=== PATIENT | female | born 1990 | race Caucasian/White ===

== ENCOUNTER 2016-06-17 12:00 | Emergency (ER) | payer BC ==
--- NOTE | 2016-06-17 16:54 | DIAGNOSTIC IMAGING REPORT ---
PROCEDURE: US OB 1ST TRIMESTER W/TRANSVAG INDICATION: Pelvic pain, Beta hCG 17,000. Initial encounter. TECHNIQUE: Cadet scale, color, and spectral Doppler transabdominal and endovaginal sonographic images of the first trimester gravid uterus were obtained. COMPARISON: None. FINDINGS: TRANSABDOMINAL SCANS: Single intrauterine gestational sac. Anteverted uterus. No free fluid. Normal kidneys. Closed cervix measures 4.3 cm. TRANSVAGINAL SCANS: Gestational sac diameter of 13.7 mm, 6 weeks 3 days. Yolk sac present. No evidence of a pole. IMPRESSION: 1. Single intrauterine gestational sac without pole and Beta hCG 17,000. This suggests a blighted ovum. Recommend follow-up Beta hCG and ultrasound. 2. Results discussed with Dr. Parra
--- NOTE | 2016-06-17 17:23 | ED CLINICAL REPORT ---
Clinical Report - Physicians/Mid Levels [facility] [address] [place] [address] 06/17/2016 12:02 Patient: JACOBO MCADAMS Time Seen: 12:29; initial patient contact. Arrived- By private vehicle. Historian- patient. HISTORY OF PRESENT ILLNESS Chief Complaint: PELVIC PAIN and VAGINAL BLEEDING. This started today and still present. It was abrupt in onset and has been intermittent. The symptoms are described as mild. Modifying factors. Not worsened by anything. Not relieved by anything. The patient has had pelvic pain and abnormal bleeding. No abdominal pain, vaginal pain, low back pain, flank pain or vaginal discharge. No pain with urination, urinary frequency, urgency of urination or hematuria. Currently . Receiving care. Similar symptoms previously: None. Recent medical care: The patient was seen recently in the office. ( Most recent U/S not c/w dates). REVIEW OF SYSTEMS No nausea, vomiting, fever, chills or difficulty breathing. All systems otherwise negative, except as recorded above. PAST HISTORY ( Psoriasis. Suicide Attempt. Depression. SURGERIES: Adenoidectomy. Tonsillectomy.). SOCIAL HISTORY Never smoker. No alcohol use or drug use. ADDITIONAL NOTES The nursing notes have been reviewed. PHYSICAL EXAM Vital Signs: 06/17/2016 12:08 BP: 113/68. HR: 80. RR: 16. O2 saturation: 100%. Temp: 98.4 F. Pain level now: 5/10. Have been reviewed as normal. Appearance: Alert. Oriented X3. No acute distress. HEENT: Normal external inspection. CVS: Heart sounds normal. Rate normal. Rhythm normal. Respiratory: No respiratory distress. Breath sounds normal. Abdomen: Soft. Mild tenderness in the suprapubic area. Bowel sounds normal. Back: Normal external inspection. No CVA tenderness. : Speculum exam performed. A scant amount of thick and curd-like vaginal discharge present. No vaginal bleeding. Cervical os closed. No tissue present. No cervicitis. Bimanual exam normal. (Female RN present for exam.). Skin: Normal skin color. No rash. Neuro: Oriented X 3. LABS, X-RAYS, AND EKG Pelvic Sonogram: No pole or heartbeat, suspicious for blighted ovum. No adnexal mass or free fluid in pelvis. Study type: bedside. The study was interpreted by the radiologist and discussed with the radiologist. Prior studies were not available for comparison. Interpretation time: 16:51. Laboratory Tests: UA-Culture if indicated: (BRAVO: 06/17/2016 00:01) ( [facility] 06/17/2016 15:15) Final results Test Result Flag Units (Reference) URINE COLOR YELLOW URINE APPEARANCE CLEAR URINE GLUCOSE NEGATIVE (NEGATIVE) URINE BILIRUBIN NEGATIVE (NEGATIVE) URINE KETONE NEGATIVE (NEGATIVE) URINE SPECIFIC GRAVITY <= 1.005 L (1.010-1.030) URINE PH 6.0 (5.0-8.0) URINE PROTEIN NEGATIVE (NEGATIVE) URINE UROBILINOGEN 0.2 EU/dL (0.2-1.0) URINE NITRITE NEGATIVE (NEGATIVE) URINE BLOOD TRACE-LYSED (NEGATIVE) URINE LEUK ESTERASE NEGATIVE (NEGATIVE) URINE RBC NONE SEEN rbc/hpf (0-1) URINE WBC 0-1 wbc/hpf (0-1) URINE EPITHELIAL CELLS 1-3 EPI/hpf (0-5) URINE BACTERIA NONE SEEN (NONE SEEN) URINE COMMENT CULT NOT INDICATED URINE CULTURES ARE SET-UP BASED ON THE FOLLOWING CRITERIA:POSITIVE NITRITEPOSITIVE LEUKOCYTE ESTERASEGREATER THAN 10 WHITE BLOOD CELLSMODERATE (2+) OR GREATER BACTERIA Urine: (BRAVO: 06/17/2016 00:01) ( [facility] 06/17/2016 15:04) Final results Test Result Flag Units (Reference) URINE POSITIVE CBC w Diff: (BRAVO: 06/17/2016 12:50) ( [facility] 06/17/2016 13:13) Final results Test Result Flag Units (Reference) WHITE BLOOD COUNT 7.2 K/uL (4.5-11.5) RED BLOOD COUNT 5.07 M/uL (4.00-5.20) HEMOGLOBIN 15.5 gm/dL (12.0-16.0) HEMATOCRIT 46.2 H % (36.0-46.0) MEAN CELL VOLUME 91 fL (80-100) MEAN CORPUSCULAR HGB 31 pg (26-34) MEAN CORPUSCULAR HGB CONC 34 g/dL (31-37) RED CELL DISTRIBUTION WIDTH 12.3 % (11.6-14.8) PLATELET COUNT 258 K/uL (150-400) NEUTROPHIL % 58.5 % (50-75) LYMPH % 34.1 % (25-40) MONO % 6.2 % (3-14) EOSINOPHIL % 0.7 % (0-4) BASOPHIL % 0.5 % (0-2) Serum Quantitative: (BRAVO: 06/17/2016 12:50) ( [facility] 06/17/2016 14:12) Final results Test Result Flag Units (Reference) BETA HCG, QUANTITATIVE 37305 mIU/mL REFERENCE RANGE:Adult Males: <2 mIU/mLNon- Females: <6 mIU/mL Females:Approximate Approximate hCGGestational Age Range (mIU/mL) 0-1 week 0-501-2 weeks 40-3002-3 weeks 100-21643-2 weeks 500-23656-0 months 5,000-200,0002-3 months 10,000-100,0002nd trimester 3,000-50,0003rd trimester 1,000-50,000 CMP: (BRAVO: 06/17/2016 12:50) ( [facility] 06/17[facility] 13:18) Final results Test Result Flag Units (Reference) GLUCOSE 101 mg/dL (70-110) BUN 8 mg/dL (7-18) CREATININE 0.6 mg/dL (0.6-1.3) Estimated GFR >60 mL/min Estimated GFR- >60 mL/min Note: Persistent reduction over 3 months in eGFR<60 mL/min/1.73 m2 defines CKD. Patients with eGFR values>=60 mL/min/1.73 m2 may also have CKD if evidence ofpersistent proteinuria. Additional information may be foundat www.kidney.org. SODIUM 139 mmol/L (136-145) POTASSIUM 3.8 mmol/L (3.5-5.1) CHLORIDE 106 mmol/L (98-107) CARBON DIOXIDE 23 mmol/L (21-32) CALCIUM 8.7 mg/dL (8.5-10.1) TOTAL PROTEIN 7.2 g/dL (6.4-8.2) ALBUMIN 3.7 g/dL (3.3-5.0) BILIRUBIN, TOTAL 0.5 mg/dL (0.0-1.0) ALKALINE PHOSPHATASE 62 U/L (46-116) AST (SGOT) 17 U/L (15-37) ALT (SGPT) 18 U/L (12-78) LIPASE 74 U/L (73-393) AMYLASE 40 U/L (25-115) Wet Prep: (BRAVO: 06/17/2016 00:00) ( [facility] 06/17/2016 15:03) Final results SPECIMEN DESCRIPTION: ... Test Result Flag Units (Reference) WET MOUNT CLUE CELLS:: NONE EPITHELIAL CELLS: MANY -- SOURCE?: CERVIX WHITE BLOOD CELLS: MANY TRICHOMONAS:: NONE -- YEAST:: NONE Type & Rh: (BRAVO: 06/17/2016 12:50) ( [facility] 06/17/2016 13:48) Final results Test Result Flag Units (Reference) PATIENT BLOOD TYPE O Positive . CLINICAL IMPRESSION Blighted ovum. INSTRUCTIONS Do not work today, tomorrow. Your Current Medications: CONTINUE TAKING THE FOLLOWING MEDICATIONS: Cephalexin Oral. FLUoxetine HCl Oral. Prenate Oral. Follow-up: Follow up with your doctor in about two days. Call for an appointment. Screening today revealed the patient's blood pressure to be in the normal range. (Electronically signed by Dawson Parra Dr. 06/17/2016 17:00)
--- NOTE | 2016-06-17 17:23 | ED CLINICAL REPORT ---
Clinical Report - Physicians/Mid Levels [facility] [address] [place] [address] 06/17/2016 12:02 Patient: JACOBO MCADAMS Time Seen: 12:29; initial patient contact. Arrived- By private vehicle. Historian- patient. HISTORY OF PRESENT ILLNESS Chief Complaint: PELVIC PAIN and VAGINAL BLEEDING. This started today and still present. It was abrupt in onset and has been intermittent. The symptoms are described as mild. Modifying factors. Not worsened by anything. Not relieved by anything. The patient has had pelvic pain and abnormal bleeding. No abdominal pain, vaginal pain, low back pain, flank pain or vaginal discharge. No pain with urination, urinary frequency, urgency of urination or hematuria. Currently . Receiving care. Similar symptoms previously: None. Recent medical care: The patient was seen recently in the office. ( Most recent U/S not c/w dates). REVIEW OF SYSTEMS No nausea, vomiting, fever, chills or difficulty breathing. All systems otherwise negative, except as recorded above. PAST HISTORY ( Psoriasis. Suicide Attempt. Depression. SURGERIES: Adenoidectomy. Tonsillectomy.). SOCIAL HISTORY Never smoker. No alcohol use or drug use. ADDITIONAL NOTES The nursing notes have been reviewed. PHYSICAL EXAM Vital Signs: 06/17/2016 12:08 BP: 113/68. HR: 80. RR: 16. O2 saturation: 100%. Temp: 98.4 F. Pain level now: 5/10. Have been reviewed as normal. Appearance: Alert. Oriented X3. No acute distress. HEENT: Normal external inspection. CVS: Heart sounds normal. Rate normal. Rhythm normal. Respiratory: No respiratory distress. Breath sounds normal. Abdomen: Soft. Mild tenderness in the suprapubic area. Bowel sounds normal. Back: Normal external inspection. No CVA tenderness. : Speculum exam performed. A scant amount of thick and curd-like vaginal discharge present. No vaginal bleeding. Cervical os closed. No tissue present. No cervicitis. Bimanual exam normal. (Female RN present for exam.). Skin: Normal skin color. No rash. Neuro: Oriented X 3. LABS, X-RAYS, AND EKG Pelvic Sonogram: No pole or heartbeat, suspicious for blighted ovum. No adnexal mass or free fluid in pelvis. Study type: bedside. The study was interpreted by the radiologist and discussed with the radiologist. Prior studies were not available for comparison. Interpretation time: 16:51. Laboratory Tests: UA-Culture if indicated: (BRAVO: 06/17/2016 00:01) ( [facility] 06/17/2016 15:15) Final results Test Result Flag Units (Reference) URINE COLOR YELLOW URINE APPEARANCE CLEAR URINE GLUCOSE NEGATIVE (NEGATIVE) URINE BILIRUBIN NEGATIVE (NEGATIVE) URINE KETONE NEGATIVE (NEGATIVE) URINE SPECIFIC GRAVITY <= 1.005 L (1.010-1.030) URINE PH 6.0 (5.0-8.0) URINE PROTEIN NEGATIVE (NEGATIVE) URINE UROBILINOGEN 0.2 EU/dL (0.2-1.0) URINE NITRITE NEGATIVE (NEGATIVE) URINE BLOOD TRACE-LYSED (NEGATIVE) URINE LEUK ESTERASE NEGATIVE (NEGATIVE) URINE RBC NONE SEEN rbc/hpf (0-1) URINE WBC 0-1 wbc/hpf (0-1) URINE EPITHELIAL CELLS 1-3 EPI/hpf (0-5) URINE BACTERIA NONE SEEN (NONE SEEN) URINE COMMENT CULT NOT INDICATED URINE CULTURES ARE SET-UP BASED ON THE FOLLOWING CRITERIA:POSITIVE NITRITEPOSITIVE LEUKOCYTE ESTERASEGREATER THAN 10 WHITE BLOOD CELLSMODERATE (2+) OR GREATER BACTERIA Urine: (BRAVO: 06/17/2016 00:01) ( [facility] 06/17/2016 15:04) Final results Test Result Flag Units (Reference) URINE POSITIVE CBC w Diff: (BRAVO: 06/17/2016 12:50) ( [facility] 06/17/2016 13:13) Final results Test Result Flag Units (Reference) WHITE BLOOD COUNT 7.2 K/uL (4.5-11.5) RED BLOOD COUNT 5.07 M/uL (4.00-5.20) HEMOGLOBIN 15.5 gm/dL (12.0-16.0) HEMATOCRIT 46.2 H % (36.0-46.0) MEAN CELL VOLUME 91 fL (80-100) MEAN CORPUSCULAR HGB 31 pg (26-34) MEAN CORPUSCULAR HGB CONC 34 g/dL (31-37) RED CELL DISTRIBUTION WIDTH 12.3 % (11.6-14.8) PLATELET COUNT 258 K/uL (150-400) NEUTROPHIL % 58.5 % (50-75) LYMPH % 34.1 % (25-40) MONO % 6.2 % (3-14) EOSINOPHIL % 0.7 % (0-4) BASOPHIL % 0.5 % (0-2) Serum Quantitative: (BRAVO: 06/17/2016 12:50) ( [facility] 06/17/2016 14:12) Final results Test Result Flag Units (Reference) BETA HCG, QUANTITATIVE 79508 mIU/mL REFERENCE RANGE:Adult Males: <2 mIU/mLNon- Females: <6 mIU/mL Females:Approximate Approximate hCGGestational Age Range (mIU/mL) 0-1 week 0-501-2 weeks 40-3002-3 weeks 100-08697-9 weeks 500-04487-5 months 5,000-200,0002-3 months 10,000-100,0002nd trimester 3,000-50,0003rd trimester 1,000-50,000 CMP: (BRAVO: 06/17/2016 12:50) ( [facility] 06/17/2016 13:18) Final results Test Result Flag Units (Reference) GLUCOSE 101 mg/dL (70-110) BUN 8 mg/dL (7-18) CREATININE 0.6 mg/dL (0.6-1.3) Estimated GFR >60 mL/min Estimated GFR- >60 mL/min Note: Persistent reduction over 3 months in eGFR<60 mL/min/1.73 m2 defines CKD. Patients with eGFR values>=60 mL/min/1.73 m2 may also have CKD if evidence ofpersistent proteinuria. Additional information may be foundat www.kidney.org. SODIUM 139 mmol/L (136-145) POTASSIUM 3.8 mmol/L (3.5-5.1) CHLORIDE 106 mmol/L (98-107) CARBON DIOXIDE 23 mmol/L (21-32) CALCIUM 8.7 mg/dL (8.5-10.1) TOTAL PROTEIN 7.2 g/dL (6.4-8.2) ALBUMIN 3.7 g/dL (3.3-5.0) BILIRUBIN, TOTAL 0.5 mg/dL (0.0-1.0) ALKALINE PHOSPHATASE 62 U/L (46-116) AST (SGOT) 17 U/L (15-37) ALT (SGPT) 18 U/L (12-78) LIPASE 74 U/L (73-393) AMYLASE 40 U/L (25-115) Wet Prep: (BRAVO: 06/17/2016 00:00) ( [facility] 06/17/2016 15:03) Final results SPECIMEN DESCRIPTION: ... Test Result Flag Units (Reference) WET MOUNT CLUE CELLS:: NONE EPITHELIAL CELLS: MANY -- SOURCE?: CERVIX WHITE BLOOD CELLS: MANY TRICHOMONAS:: NONE -- YEAST:: NONE Type & Rh: (BRAVO: 06/17/2016 12:50) ( [facility] 06/17/2016 13:48) Final results Test Result Flag Units (Reference) PATIENT BLOOD TYPE O Positive . CLINICAL IMPRESSION Blighted ovum. INSTRUCTIONS Do not work today, tomorrow. Your Current Medications: CONTINUE TAKING THE FOLLOWING MEDICATIONS: Cephalexin Oral. FLUoxetine HCl Oral. Prenate Oral. Follow-up: Follow up with your doctor in about two days. Call for an appointment. Screening today revealed the patient's blood pressure to be in the normal range. (Electronically signed by Dawson Parra Dr. 06/17/2016 17:00)
--- NOTE | 2016-06-17 17:23 | ED ORDER SUMMARY ---
..... Patient: JACOBO MCADAMS OrderSheet [facility] VisitID: [id number] [place] [address] 26y, F Registration Date/Time: 06/17/2016 ORDER SHEET Weight: 70.3 kg (stated) Allergies: No Known Drug Allergy GENERAL ORDERS: CBC w Diff Urgent (12:30 06/17/2016 Alvin Rodriguez) (Ack 12:37 KHoerner) (15:36 EHassan R.N.) CMP Urgent (12:06/17/2016 Alvin Rodriguez) (Ack 12:37 GILDARDOoerner) (15:36 EHassan R.N.) UA-Culture if indicated Urgent (12:06/17/2016 Alvin Rodriguez) (Ack 12:37 GILDARDOoerner) (15:36 EHassan R.N.) Amylase Urgent (12:30 06/17/2016 Alvin Rodriguez) (Ack 12:37 KHoerner) (15:36 EHassan R.N.) Lipase Urgent (12:30 06/17/2016 Alvin Rodriguez) (Ack 12:37 GILDARDOoerner) (15:36 EHassan R.N.) Urine Urgent (12:30 06/17/2016 Alvin Rodriguez) (Ack 12:37 KHoerner) (15:36 EHassan R.N.) Type & Rh Urgent (12:30 06/17/2016 Alvin Rodriguez) (Ack 12:37 GILDARDOoerner) (15:36 EHassan R.N.) Serum Quantitative Urgent (12:41 06/17/2016 Alvin Rodriguez) (Ack 12:43 GILDARDOoerner) (15:36 EHassan R.N.) Wet Prep (Cervix) (...) Urgent (13:15 06/17/2016 Alvin Rodriguez) (Ack 13:18 GILDARDOoerward) (16:15 TChapman R.N.) GC/Chlamydia (Cervix) (...) Urgent (13:15 06/17/2016 Alvin Rodriguez) (Ack 13:18 Lucas) (16:15 TChapman R.N.) Pelvic Exam Setup (14:10 06/17/2016 Alvin Rodriguez) (15:06 Lucas) US OB 1st Trimester w Transvag (?) Urgent (15:04 06/17/2016 Alvin Rodriguez) (Ack 15:06 Lucas) (16:15 TChapman R.N.) MEDICATION ORDERS: IV FLUIDS: IV Saline Lock (12:30 06/17/2016 Alvin Rodriguez) (Ack 12:30 Milton R.N.) ORDER SHEET NOTES: [Electronically signed by Dawson Parra Dr. (17:00 06/17/2016)] [Electronically signed by Karin Carpio R.N. (17:33 06/17/2016)] [Electronically locked/signed by Karin Carpio R.N. (17:33 06/17/2016)]
--- NOTE | 2016-06-17 17:23 | ED NURSING NOTES ---
Clinical Report - Nurses [facility] [address] [place] [address] 06/17/2016 12:02 Patient: JACOBO MCADAMS TRIAGE Triage time 12:09. Acuity: LEVEL 3. Chief Complaint: ABDOMINAL PAIN and CRAMPS and VAGINAL BLEEDING. Alert. --12:16 Karin Carpio R.N. 12:08 06/17/16. BP: 113/68 (regular adult cuff) taken on the left arm, while sitting. HR: 80 (regular, normal rate and strong). RR: 16. O2 saturation: 100% on room air. Temp: 98.4 F (oral). Pain level now: 510. --12:16 Karin Carpio R.N. Weight: 70.3 kg stated. Height/Length: 63 inches. BMI: 27.5. --12:08 Karin Carpio R.N. Medications FLUoxetine HCl Oral. --12:13 Karin Carpio R.N. Prenate Oral. --12:13 Karin Carpio R.N. Cephalexin Oral. --12:13 Karin Carpio R.N. Allergies No Known Drug Allergy. --12:12 Karin Carpio R.N. History Historian: patient. Primary physician is unavailable (RUY Estes). ( patient was told she was at risk for miscarriage because things are progressing slower than expected.). This started today. ( bleeding started today around 0730 this am and cramping started around 1100). No vomiting or fever. Last oral intake by patient was snack (1100). Treatment CUPOLA TENDER: None. PAST MEDICAL HX: The patient has had care. SOCIAL HX: Never smoker. No alcohol use or drug use. No infectious disease exposure. FALL RISK ASSESSMENT: Fall risk assessment completed. No fall risk identified. NUTRITIONAL RISK ASSESSMENT: The nutritional risk assessment revealed no deficiencies. FUNCTIONAL ASSESSMENT: Functional assessment: no impairments noted. LEARNING NEEDS ASSESSMENT: The learning needs assessment revealed no barriers. SKIN INTEGRITY ASSESSMENT: Skin integrity risk assessment completed. No skin integrity risk identified. --12:16 Karin Carpio R.N. PROBLEMS: Psoriasis. Suicide Attempt. Depression. --12:14 Karin Carpio R.N. ADDITIONAL SURGERIES: Adenoidectomy. Tonsillectomy. --12:14 Karin Carpio R.N. Interventions ID band on patient. To treatment room. --12:16 Karin Carpio R.N. PHYSICAL ASSESSMENT 12:17 06/17/16. GENERAL / NEURO / PSYCH: Alert. Oriented X 4. Appears in no acute distress. HEENT: Mucous membranes are pink. RESPIRATORY: Respirations not labored. Breath sounds within normal limits. CVS: Normal heart rate and rhythm. Capillary refill less than 2 seconds. GI / : Abdomen soft. Abdominal tenderness. Bowel sounds within normal limits. No contractions noted. Vaginal bleeding present. No vaginal discharge. EXTREMITIES: No lower extremity edema. SKIN: Skin is warm and dry. --12:17 Karin Carpio R.N. NURSING PROGRESS NOTES 12:18 06/17/16. The plan of care for this patient includes an assessment with efforts to address the patient's fear; therapeutic needs of the patient as indicated by complaint specific guidelines; additional testing. Patient gowned. Call light placed in reach. Side rails up x 1. Bed placed in lowest position. Brakes of bed on. Patient ready for evaluation- chart flagged. --12:18 Karin Carpio R.N. 12:50 06/17/2016 Site #1 started via IV in the left hand with an 22g angiocath; one attempt. Saline lock flushed (unable to draw from site). --13:00 Karin Carpio R.N. 13:01 06/17/16. Patient ID band checked for patient name and birthdate: patient confirmed. Blood samples drawn from the right hand with 21g butterfly by nurse per protocol ; labeled in presence of the patient and sent to lab: red, green and purple top. --13:01 Karin Carpio R.N. ( patient still unable to give urine sample. States she will try again in a little bit). --13:27 Karin Carpio R.N. 13:26 03/28/17. BP: 101/73 (regular adult cuff) taken on the left arm, while sitting. HR: 80 (normal rate). RR: 16 (regular and unlabored). O2 saturation: 100% on room air. --13:27 Karin Carpio R.N. 14:32. 14:29 06/17/16. PELVIC EXAM: Pelvic exam performed by ED physician. Assisted by one nurse. Preparation: pelvic tray and culture medium; patient placed in lithotomy position. Procedure: speculum exam. Specimens collected and sent to lab: GC, chlamydia and wet prep. Total time of assist / procedure: 15 minutes. --14:29 Karin Carpio R.N. 15:15 06/17/16. ( patient resting in bed, awaiting US.). --15:15 Karin Carpio R.N. 15:13 06/17/16. BP: 111/70 (regular adult cuff) taken on the left arm, while lying. HR: 78 (normal rate and strong). RR: 16 (regular and unlabored). O2 saturation: 100% on room air. Pain level now: 0/10. --15:15 Karin Carpio R.N. 16:04 06/17/16. ( US air launch weapons technician in room with patient). --16:04 Karin Carpio R.N. DISPOSITION / DISCHARGE 17:30 06/17/2016 Site #1 removed upon discharge. Bandaid applied. --17:30 Karin Carpio R.N. 17:32 06/17/16. Condition at departure: unchanged. No learning barriers present. Discharge instructions provided and reviewed with the patient. Reviewed referrals. Patient and spouse verbalized understanding. Written instructions provided in Azerbaijani. The patient was discharged home and accompanied by lockstitch shoulder joiner. She left the Emergency Department ambulatory and via private vehicle. Spouse driving. --17:32 Karin Carpio R.N. 17:30 06/17/16. BP: 107/65. HR: 77. RR: 16. O2 saturation: 100%. Temp: 98.5 F. Pain level now: 3/10. --17:32 Karin Carpio R.N. Locked/Released at 06/17/2016 17:33 by Karin Carpio R.N.
--- NOTE | 2016-06-17 17:23 | ED ORDER SUMMARY ---
..... Patient: JACOBO MCADAMS OrderSheet [facility] VisitID: [id number] [place] [address] 26y, F Registration Date/Time: 06/17/2016 ORDER SHEET Weight: 70.3 kg (stated) Allergies: No Known Drug Allergy GENERAL ORDERS: CBC w Diff Urgent (12:30 06/17/2016 Alvin Rodriguez) (Ack 12:37 KHoerner) (15:36 EHassan R.N.) CMP Urgent (12:06/17/2016 Alvin Rodriguez) (Ack 12:37 GILDARDOoerner) (15:36 EHassan R.N.) UA-Culture if indicated Urgent (12:06/17/2016 Alvin Rodriguez) (Ack 12:37 GILDARDOoerner) (15:36 EHassan R.N.) Amylase Urgent (12:30 06/17/2016 Alvin Rodriguez) (Ack 12:37 KHoerner) (15:36 EHassan R.N.) Lipase Urgent (12:30 06/17/2016 Alvin Rodriguez) (Ack 12:37 GILDARDOoerner) (15:36 EHassan R.N.) Urine Urgent (12:30 06/17/2016 Alvin Rodriguez) (Ack 12:37 KHoerner) (15:36 EHassan R.N.) Type & Rh Urgent (12:30 06/17/2016 Alvin Rodriguez) (Ack 12:37 GILDARDOoerner) (15:36 EHassan R.N.) Serum Quantitative Urgent (12:41 06/17/2016 Alvin Rodriguez) (Ack 12:43 GILDARDOoerner) (15:36 EHassan R.N.) Wet Prep (Cervix) (...) Urgent (13:15 06/17/2016 Alvin Rodriguez) (Ack 13:18 GILDARDOoerward) (16:15 TChapman R.N.) GC/Chlamydia (Cervix) (...) Urgent (13:15 06/17/2016 Alvin Rodriguez) (Ack 13:18 Lucas) (16:15 TChapman R.N.) Pelvic Exam Setup (14:10 06/17/2016 Alvin Rodriguez) (15:06 Lucas) US OB 1st Trimester w Transvag (?) Urgent (15:04 06/17/2016 Alvin Rodriguez) (Ack 15:06 Lucas) (16:15 TChapman R.N.) MEDICATION ORDERS: IV FLUIDS: IV Saline Lock (12:30 06/17/2016 Alvin Rodriguez) (Ack 12:30 Milton R.N.) ORDER SHEET NOTES: [Electronically signed by Dawson Parra Dr. (17:00 06/17/2016)] [Electronically signed by Karin Carpio R.N. (17:33 06/17/2016)] [Electronically locked/signed by Karin Carpio R.N. (17:33 06/17/2016)]
--- NOTE | 2016-06-17 17:23 | ED NURSING NOTES ---
Clinical Report - Nurses [facility] [address] [place] [address] 06/17/2016 12:02 Patient: JACOBO MCADAMS TRIAGE Triage time 12:09. Acuity: LEVEL 3. Chief Complaint: ABDOMINAL PAIN and CRAMPS and VAGINAL BLEEDING. Alert. --12:16 Karin Carpio R.N. 12:08 06/17/16. BP: 113/68 (regular adult cuff) taken on the left arm, while sitting. HR: 80 (regular, normal rate and strong). RR: 16. O2 saturation: 100% on room air. Temp: 98.4 F (oral). Pain level now: 510. --12:16 Karin Carpio R.N. Weight: 70.3 kg stated. Height/Length: 63 inches. BMI: 27.5. --12:08 Karin Carpio R.N. Medications FLUoxetine HCl Oral. --12:13 Karin Carpio R.N. Prenate Oral. --12:13 Karin Carpio R.N. Cephalexin Oral. --12:13 Karin Carpio R.N. Allergies No Known Drug Allergy. --12:12 Karin Carpio R.N. History Historian: patient. Primary physician is unavailable (RUY Estes). ( patient was told she was at risk for miscarriage because things are progressing slower than expected.). This started today. ( bleeding started today around 0730 this am and cramping started around 1100). No vomiting or fever. Last oral intake by patient was snack (1100). Treatment STONE SANDBLASTER: None. PAST MEDICAL HX: The patient has had care. SOCIAL HX: Never smoker. No alcohol use or drug use. No infectious disease exposure. FALL RISK ASSESSMENT: Fall risk assessment completed. No fall risk identified. NUTRITIONAL RISK ASSESSMENT: The nutritional risk assessment revealed no deficiencies. FUNCTIONAL ASSESSMENT: Functional assessment: no impairments noted. LEARNING NEEDS ASSESSMENT: The learning needs assessment revealed no barriers. SKIN INTEGRITY ASSESSMENT: Skin integrity risk assessment completed. No skin integrity risk identified. --12:16 Karin Carpio R.N. PROBLEMS: Psoriasis. Suicide Attempt. Depression. --12:14 Karin Carpio R.N. ADDITIONAL SURGERIES: Adenoidectomy. Tonsillectomy. --12:14 Karin Carpio R.N. Interventions ID band on patient. To treatment room. --12:16 Karin Carpio R.N. PHYSICAL ASSESSMENT 12:17 06/17/16. GENERAL / NEURO / PSYCH: Alert. Oriented X 4. Appears in no acute distress. HEENT: Mucous membranes are pink. RESPIRATORY: Respirations not labored. Breath sounds within normal limits. CVS: Normal heart rate and rhythm. Capillary refill less than 2 seconds. GI / : Abdomen soft. Abdominal tenderness. Bowel sounds within normal limits. No contractions noted. Vaginal bleeding present. No vaginal discharge. EXTREMITIES: No lower extremity edema. SKIN: Skin is warm and dry. --12:17 Karin Carpio R.N. NURSING PROGRESS NOTES 12:18 06/17/16. The plan of care for this patient includes an assessment with efforts to address the patient's fear; therapeutic needs of the patient as indicated by complaint specific guidelines; additional testing. Patient gowned. Call light placed in reach. Side rails up x 1. Bed placed in lowest position. Brakes of bed on. Patient ready for evaluation- chart flagged. --12:18 Karin Carpio R.N. 12:50 06/17/2016 Site #1 started via IV in the left hand with an 22g angiocath; one attempt. Saline lock flushed (unable to draw from site). --13:00 Karin Carpio R.N. 13:01 06/17/16. Patient ID band checked for patient name and birthdate: patient confirmed. Blood samples drawn from the right hand with 21g butterfly by nurse per protocol ; labeled in presence of the patient and sent to lab: red, green and purple top. --13:01 Karin Carpio R.N. ( patient still unable to give urine sample. States she will try again in a little bit). --13:27 Karin Carpio R.N. 13:26 03/28/17. BP: 101/73 (regular adult cuff) taken on the left arm, while sitting. HR: 80 (normal rate). RR: 16 (regular and unlabored). O2 saturation: 100% on room air. --13:27 Karin Carpio R.N. 14:32. 14:29 06/17/16. PELVIC EXAM: Pelvic exam performed by ED physician. Assisted by one nurse. Preparation: pelvic tray and culture medium; patient placed in lithotomy position. Procedure: speculum exam. Specimens collected and sent to lab: GC, chlamydia and wet prep. Total time of assist / procedure: 15 minutes. --14:29 Karin Carpio R.N. 15:15 06/17/16. ( patient resting in bed, awaiting US.). --15:15 Karin Carpio R.N. 15:13 06/17/16. BP: 111/70 (regular adult cuff) taken on the left arm, while lying. HR: 78 (normal rate and strong). RR: 16 (regular and unlabored). O2 saturation: 100% on room air. Pain level now: 0/10. --15:15 Karin Carpio R.N. 16:04 06/17/16. ( US emergency medical technician/driver in room with patient). --16:04 Karin Carpio R.N. DISPOSITION / DISCHARGE 17:30 06/17/2016 Site #1 removed upon discharge. Bandaid applied. --17:30 Karin Carpio R.N. 17:32 06/17/16. Condition at departure: unchanged. No learning barriers present. Discharge instructions provided and reviewed with the patient. Reviewed referrals. Patient and spouse verbalized understanding. Written instructions provided in [place]. The patient was discharged home and accompanied by supervisor boarding. She left the Emergency Department ambulatory and via private vehicle. Spouse driving. --17:32 Karin Carpio R.N. 17:30 06/17/16. BP: 107/65. HR: 77. RR: 16. O2 saturation: 100%. Temp: 98.5 F. Pain level now: 3/10. --17:32 Karin Carpio R.N. Locked/Released at 06/17/2016 17:33 by Karin Carpio R.N.
--- NOTE | 2016-06-17 17:33 | ED MED RECONCILIATION SUMMARY ---
Patient: JACOBO MCADAMS Medication Reconciliation Report [facility] VisitID: [id number] [address] [place] [address] 26y, F Registration Date/Time: 06/17/2016 Weight: 70.3 kg Height/Length: 63 in. BMI: 27.5 ALLERGIES: No Known Drug Allergy The patient's Home Medications are listed below: CONTINUE TAKING THE FOLLOWING MEDICATIONS: Cephalexin Oral FLUoxetine HCl Oral Prenate Oral The source(s) of the original Home Medication information: Not obtained. The following Medications were given to the patient in the Emergency Department: None. The following Medications were prescribed to the patient: None.
--- NOTE | 2016-06-17 17:33 | ED MED RECONCILIATION SUMMARY ---
Patient: JACOBO MCADAMS Medication Reconciliation Report [facility] VisitID: [id number] [address] [place] [address] 26y, F Registration Date/Time: 06/17/2016 Weight: 70.3 kg Height/Length: 63 in. BMI: 27.5 ALLERGIES: No Known Drug Allergy The patient's Home Medications are listed below: CONTINUE TAKING THE FOLLOWING MEDICATIONS: Cephalexin Oral FLUoxetine HCl Oral Prenate Oral The source(s) of the original Home Medication information: Not obtained. The following Medications were given to the patient in the Emergency Department: None. The following Medications were prescribed to the patient: None.
--- NOTE | 2016-06-17 17:33 | ED MAR SUMMARY ---
..... Medication Administration Record [facility] [address] [place] [id number] Patient: JACOBO MCADAMS Visit ID: [id number] 26y, F Weight: 70.3 kg Height/Length: 63 in BMI: 27.5 ALLERGIES: No Known Drug Allergy
--- NOTE | 2016-06-17 17:33 | ED MAR SUMMARY ---
..... Medication Administration Record [facility] [address] [place] [id number] Patient: JACOBO MCADAMS Visit ID: [id number] 26y, F Weight: 70.3 kg Height/Length: 63 in BMI: 27.5 ALLERGIES: No Known Drug Allergy
--- NOTE | 2016-06-17 17:33 | ED DISCHARGE INSTRUCTIONS ---
Patient: JACOBO MCADAMS General Instructions [facility] VisitID: [id number] [place] [address] 26y, F Registration Date/Time: 06/17/2016 Blighted ovum. INSTRUCTIONS Do not work today, tomorrow. Your Current Medications: CONTINUE TAKING THE FOLLOWING MEDICATIONS: Cephalexin Oral. FLUoxetine HCl Oral. Prenate Oral. Follow-up: Follow up with your doctor in about two days. Call for an appointment. Screening today revealed the patient's blood pressure to be in the normal range. ADDITIONAL INFORMATION Miscarriage (Incomplete) Todays exam shows that your has ended suddenly. While this may be an emotionally difficult time for you, know that it is not an uncommon event. A miscarriage can be due to various causes. These include a problem with the babys chromosomes (genes that carry the information needed for life) or with fertilization or implantation that didnt happen correctly. In most cases no cause can be found. Be assured that this miscarriage was not the result of anything that you did wrong, and it will not interfere with your ability to become in the future. It appears that your miscarriage is not yet complete. There is still some tissue from the in the uterus. You will probably have more cramping and bleeding for the next few days as the uterus expels the tissue. In many cases all of the tissue will pass by itself. But sometimes tissue remains and it must be removed to stop bleeding and prevent infection. Home Care: You may resume normal activities if you are not having heavy bleeding or pain. Until the bleeding stops completely and to prevent infection: Do not have sexual intercourse for as long as the healthcare provider tells you. Use sanitary napkins instead of tampons. Do not douche. If you feel sadness or grief, it may help to talk about your feelings with family and friends, or with a counselor. Follow Up: Make an appointment to see your doctor as directed by our staff. tissue will appear as a one-inch or larger piece of olvera or pink flesh. If tissue has not passed from the vagina within the next 5 days, you need to be seen by your doctor for another exam. To prevent infection in the uterus, it may be necessary to remove the tissue through a surgical procedure. Or, you may be prescribed medication to take at home to help your body expel the remaining tissue. Get Prompt Medical Attention if any of the following occur: Heavy bleeding (soaking one new pad an hour over three hours) Foul-smelling vaginal discharge Fever of 100.4F (38C) or higher, or as directed by your healthcare provider Increasing lower abdominal pain Weakness, dizziness, or fainting You have been given the following additional information: Miscarriage (Incomplete) Do not work today, tomorrow. (Electronically signed by Dawson Parra Dr. 06/17/2016 17:00)
== END 2016-06-17 17:30 | disposition home or self-care (01) ==
LOC: ED SRH 12:00
DX: O02.0 Blighted ovum and nonhydatidiform mole (principal)
CPT/HCPCS: 90001; 90004; 90100; 90155; 90195; 90197; 91227; 91228; 92235; 92530; 93070; 95059